=== PATIENT | male | born 1930 | race Caucasian/White ===

== ENCOUNTER 2017-03-12 12:44 | Inpatient (IN) ==
[2017-03-12] MEDS ORDERED: SODIUM CHLORIDE 0.9% 500 ML IV STA (14:09)
[2017-03-12] MEDS ORDERED: ALUM/MAG/SIMETH/LIDO VISC 1:1 30 ML BOTTLE PO STA (14:09)
[2017-03-12] MEDS ORDERED: PANTOPRAZOLE 40 MG VIAL IV STA (14:09)
[2017-03-12] MEDS ORDERED: ONDANSETRON 4 MG/2 ML VIAL IV STA (14:09)
[2017-03-12] MEDS ORDERED: HYDROmorphone 2 MG/1 ML VIAL IV STA (14:09)
--- NOTE | 2017-03-12 14:12 | Emergency Department Note ---
Gurinder Renae Brittany, am scribing for, and in the presence of, Solo Dobson MD 13:29. Bronson Renae Charles R, MD, personally performed the services described in this documentation, ascribed by Belksi Fairchild in my presence, and it is both accurate and complete 412 . Arrival - Arrival Chief Complaint: Abdominal / Flank Pain Stated Complaint: stomach ache ED Nursing Triage Note: states has a bad stomach ache onset last night. denies n /v/d Mode of Arrival: Ambulatory Limitations: No Limitations Source: Patient, RN Notes Reviewed - History of Present Illness HPI Narrative: Patient is a 86 y/o white male presenting to the ED with c/o abdominal pain which onset last night. He denies any associated N/V/D, urinary frequency, urinary urgency, or dysuria. Patient states, "it feels like srinivasan bust." He reports that he did eat some cantaloupe, but truly believes that this may be another bowel blockage due to his history of bowel blockages. states that patient was admitted and to have a surgical procedure performed for a bowel blockage and states that the morning of the procedure patient had a bowel movement and notably the blockage was relieved. He denies any use of EtOH or Cigarettes. PMHx of HTN, Cerebral Hemorrhage, Migraine, Thyroid Disorder, Dyslipidemia, Gout, Renal Problems, Kidney Stones, Bowel Obstruction, GERD, Anemia, Partial Left Nephrectomy, Tonsillectomy/Adenoidectomy, Appendectomy, Colonoscopy, Prostate Surgery. Onset (ago): hour(s) Consistency: constant Severity: moderate Severity scale (1-10): 6 Quality: aching Allergies/Adverse Reactions: Allergies Allergy/AdvReac Type Severity Reaction Status Date / Time Sulfa (Sulfonamide Allergy Severe Unknown/Unable Verified 04/09/16 06:19 Antibiotics) to obtain sulfamethoxazole Allergy Severe Unknown/Unable Verified 04/09/16 06:19 [From Bactrim] to obtain trimethoprim [From Bactrim] Allergy Severe Unknown/Unable Verified 04/09/16 06: 19 to obtain Home Medications: Home Medications Medication Instructions Recorded Confirmed Type Allopurinol 1 tablet PO DAILY 06/13/15 03/12/17 History Ferrous Gluconate [Fergon] 240 mg PO BID 06/13/15 03/12/17 History Finasteride [Proscar] 5 mg PO DAILY 06/13/15 03/12/17 History Levothyroxine Tab [Synthroid Tab] 1 tablet PO DAILY 06/13/15 03/12/17 History Nitroglycerin Sl Tab [Nitrostat] 0.4 mg SL Q5M PRN 06/13/15 03/12/17 History Pantoprazole Tab [Protonix Tab] 40 mg PO DAILY 06/13/15 03/12/17 History Potassium Chloride 20 meq PO DAILY 06/13/15 03/12/17 History Pravastatin [Pravachol] 40 mg PO BEDTIME 06/13/15 03/12/17 History Timolol 0.5% Oph Soln [Timoptic 1 drop BOTH EYES BID 06/13/15 03/12/17 History 0.5%] Cholecalciferol [Vitamin D3] 400 unit PO DAILY 03/30/16 03/12/17 History Gabapentin 100 mg PO TID 03/30/16 03/12/17 History Aspirin EC Tab 81 mg PO DAILY 03/12/17 03/12/17 History Doxazosin Mesylate 8 mg PO QPM 03/12/17 03/12/17 History Triamterene/Hydrochlorothiazid 1 each PO QAM 03/12/17 03/12/17 History [Triamterene-Hctz 37.5-25 mg Tb] dilTIAZem HCl [Cartia XT] 240 mg PO BID 03/12/17 03/12/17 History Review of System - Review of System 12 point system: reviewed and no additional remarkable complaints except as stated - Review of System Constitutional: Absent: chills, fever Eyes: Absent: vision change Head/Ears/Nose/Throat: Absent: nasal drainage, sore throat Respiratory: Absent: respiratory distress Cardiovascular: Absent: chest pain Gastrointestinal: Present: abdominal pain. Absent: nausea, vomiting, diarrhea Genitourinary male: Absent: urgency, dysuria, frequency Musculoskeletal: Absent: arm pain, back pain, leg pain, neck pain Skin: Absent: rash Neurological: Absent: headache Psychiatric: Absent: anxiety, depression Medical,Surgical,& Family Hx - Medical History Cardio: History of: Hypertension, Cardiovascular Problems (LOWER EXT CIRCULATION DECREASED.PT SEES DR HERNANDEZ) Neurology: History of: Cerebral Hemorrhage (2012 NO SURGERY), Migraine ( CHILDHOOD) No history of: Seizures HEENT: History of: Ear Problem (BILATERAL HEARING AIDS), Eye Problem (OU), Dental Problems (FULL SET), Glaucoma (OU) Endocrine: History of: Dyslipidemia, Thyroid Disorder (BX) Rheumatology: History of;: Gout (PAST HISTORY) Renal: History of: Renal Problems (PT SEES DR MAN.) Genitourinary: History of: Kidney Stones (PAST HISTORY), Problems (BEIGN TUMOR REMOVE LEFT KIDNEY. DR MACY ORTIZ) Gastrointestinal: History of: Bowel Obstruction, GERD Hematology: History of: Anemia - Surgical History Thoracic Surgeries: Surgical HX of;: Nephrectomy (PARTIAL LEFT) Neurologic Surgeries: Surgical HX of: Cerebral Hemorrhage (2012 NO SURGERY) HEENT Surgeries: Surgical HX of: Eye Surgery (BILATERAL CATARACT ), Tonsilectomy & Adenoidectomy Abdominal Surgeries: Surgical HX of: Appendectomy, Colonoscopy (DR GALARZA) Reproductive Surgeries: Surgical HX of;: Genitourinary Surgery (TUMOR REMOVE KIDNEY), Prostate Surgery - Family History Family History: Reports;: Family Cancer (BROTHER), Family Diabetes (DAD BOTHERS- 2), Family Heart Disease (MOM), Family Hypertension (PQREBTD) - Social History Smoking Status: Never smoker Frequency of Alcohol Use: None Type of Drug Use: None Exam Vital Signs: Vital Signs Temperature 98.5 F 03/12/17 12:57 Pulse Rate 86 03/12/17 12:57 Respiratory Rate 18 03/12/17 12:57 Blood Pressure 168/80 03/12/17 12:57 O2 Sat by Pulse Oximetry 97 03/12/17 12:57 - General General appearance: alert, in no apparent distress - Head Head exam: Present: atraumatic, normocephalic, normal inspection - Eye Eye exam: Present: normal appearance, PERRL, EOMI - ENT ENT exam: Present: normal exam, normal oropharynx - Neck Neck exam: Present: normal inspection, full ROM, trachea midline - Chest Chest inspection: Present: normal inspection, symmetric chest wall rise - Respiratory Respiratory exam: Present: normal lung sounds bilaterally - Cardiovascular Cardiovascular exam: Present: regular rate, normal rhythm, normal heart sounds - Abdominal Exam Abdominal exam: Present: soft, distention, hypoactive bowel sounds. Absent: tenderness, normal bowel sounds - Extremities Exam Extremities exam: Present: pedal edema (+3 noted to bilateral lower extremities) - Back Exam Back exam: Present: normal inspection - Neurological Exam Neurological exam: Present: alert, oriented X3, CN II-XII intact. Absent: motor sensory deficit - Psychiatric Psychiatric exam: Present: normal affect, normal mood - Skin Skin exam: Present: warm, dry Course - Consultations Consultation #1: Dr. Jiménez will admit patient Time: 15:51 Results - Labs CBC & BMP: 03/12/17 13:37 03/12/17 13:37 Lab Results: I have reviewed the patients labs Labs: Laboratory Tests 03/12/17 03/12/17 13:37 13:37 WBC 11.0 RBC 4.93 Hgb 15.0 Hct 44.9 MCV 91.1 MCH 30 MCHC 33.4 RDW 14.3 Plt Count 161 MPV 11.7 Neut % (Auto) 84.2 H Lymph % (Auto) 9.4 L Crowley % (Auto) 5.4 Eos % (Auto) 0.2 Baso % (Auto) 0.3 Neut # (Auto) 9.3 H Lymph # (Auto) 1.0 L Crowley # (Auto) 0.6 Eos # (Auto) 0.0 Baso # (Auto) 0.0 Immature Gran % 0.5 Nucleated RBC % 0.0 Immature Gran # 0.05 Nucleated RBCs # 0.00 Sodium 141 Potassium 3.8 Chloride 103 Carbon Dioxide 30 Anion Gap 11.8 BUN 17 Creatinine 1.50 H GFR Calculation 50 BUN/Creatinine Ratio 11.00 Glucose 111 H Calculated Osmolality 283.3 Calcium 9.9 Magnesium 2.3 Total Bilirubin 0.70 AST 31 ALT 42 Alkaline Phosphatase 58 Troponin I < 0.015 Total Protein 6.9 Albumin 4.0 Globulin 2.9 Albumin/Globulin Ratio 1.3 Amylase 59 Lipase 95.0 Laboratory Tests 03/12/17 13:37 Lactic Acid 2.1 H - Diagnostic Findings Procedure: Abdominal x-ray: report reviewed by me (No definite acute process seen.), Chest x-ray: report reviewed by me (Slight increase in heart size.), CT Abdomen and Pelvis: report reviewed by me (1. The middle loops of small intestine demonstrate disproportionate dilatation and air-fluid levels. Loops of bowel measure up to 3 cm in diameter. Fecalization is also present. These findings are consistent with a partial small bowel obstruction. To some extent , similar findings were seen on the previous exam, but the degree of distention is worsened compared to the study. Considerations include adhesions, internal hernia, or infiltrating neoplasm without significant mass effect. 2. Small amount of free fluid, adjacent to dilated loops of bowel. 3. Stable right adrenal mass. 4. Postsurgical changes of the left kidney. Small nodular densities, some of which at least represent cysts, seen on the kidneys, which will need to be progressively followed. 5. Cholelithiasis. 6. Fatty infiltration of the liver. 7. Enlarged prostate gland, containing either more likely calcifications, or radioactive beads. 8. Left inguinal and umbilical hernias which contain only fat. 9. Development of pleural effusion, and a small amount of increased pericardial fluid.) Disposition Clinical Impression: Abdominal pain, Small bowel obstruction Case discussed with: patient, patient's family Disposition: Still a Patient Condition: Stable Time of Disposition: 15:51
[2017-03-12 14:26] LABS: Basophils % 0.3 % (0.0-0.8); Eosinophils % 0.2 % (0.00-10.9); Hematocrit 44.9 VOL% (42.0-52.0); Immature Granulocytes % 0.5 %; Immature Granulocytes Absolute 0.05 #; Lymphocytes % 9.4 % (21.2-54.2); Mean Corpuscular HGB Conc 33.4 GM/DL (32-36); Mean Corpuscular Hemoglobin 30 PG (27-34); Mean Corpuscular Volume 91.1 FL (87-102); Mean Platelet Volume 11.7 FL (9.6-12.0); Monocytes # 0.6 10*3/uL (0.11-0.8); Monocytes % 5.4 % (1.7-12.7); Neutrophils # 9.3 10*3/uL (1.4-7.4); Neutrophils % 84.2 % (38.7-73.9); Platelet Count 161 T/CUMM (130-400); Red Blood Count 4.93 MC/CUMM (3.8-5.5); Red Cell Distribution Width 14.3 % (9.3-17.3)
[2017-03-12] MEDS ORDERED: ONDANSETRON 4 MG/2 ML VIAL ONE (14:35)
[2017-03-12] MEDS ORDERED: HYDROmorphone 2 MG/1 ML VIAL ONE (14:35)
[2017-03-12] MEDS ORDERED: ALUM/MAG/SIMETH/LIDO VISC 1:1 30 ML BOTTLE PO ONE (14:35)
[2017-03-12] MEDS ORDERED: PANTOPRAZOLE 40 MG VIAL IV ONE (14:35)
[2017-03-12 14:39] LABS: Alanine Aminotransferase 42 U/L (16-61); Alkaline Phosphatase 58 U/L (45-117); Amylase 59 U/L (25-115); Aspartate Amino Transferase 31 U/L (0-37); Blood Urea Nitrogen 17 MG/DL (7-18); Calcium 9.9 MG/DL (8.5-10.1); Glucose 111 MG/DL (74-106); Magnesium 2.3 MG/DL (1.8-2.4); Osmolality,Calculated 283.3 MOS/KG (273-304); Potassium 3.8 MMOL/L (3.5-5.1); Sodium 141 MMOL/L (136-145); Total Protein 6.9 G/DL (6.4-8.3); Troponin I Only < 0.015 NG/ML (0.00-0.045)
[2017-03-12 15:20] LABS: Lactic Acid 2.1 MMOL/L (0.4-2.0)
--- NOTE | 2017-03-12 15:29 | CT Report ---
CT of the abdomen and pelvis with intravenous contrast. No oral contrast was administered. Axial images were obtained with sagittal and coronal reconstructions. Indication: Generalized abdominal and pelvic pain. 100 cc Omni 350. Comparison is made to a previous noncontrasted study of February 04, 2016. The heart is upper limits of normal in size. There are small, left greater than right pleural effusions. There is atelectasis present within each lung base. There is a calcified granuloma in the medial aspects of the right lower lobe. There is coronary artery calcification. There is a slight increase in pericardial fluid inferiorly. The liver is normal in size. There is slight fatty infiltration of the liver. Tiny cysts are noted within the left lobe of the liver. No biliary ductal dilatation. Layering within the gallbladder, tiny gallstones are seen. There is an adrenal mass on the right. The features are most suggestive, but not completely diagnostic, of an adenoma. It measures 18 mm. It remains stable compared to the previous exam from February 04, 2016. There is no splenic enlargement. Within the right kidney, there is a small lobulation medially at the mid pole, stable. There is a 12 mm cyst at the medial mid pole. There is a tiny hypodensity most likely representing a cyst, at the lower pole posteriorly. Along the anterior border of the right lobe, there is a fat and calcific density which probably relates to previous surgery. There is a 15 mm hypodensity, stable, most likely representing a cyst. No hydronephrosis. Phleboliths are noted along the left groin. The urinary bladder presents a normal appearance. The prostate gland is enlarged with a diameter of 6.9 cm. It contains either calcifications, or small implants. There is heavy calcific plaque of the abdominal aorta. This extends into the origins of the SMA and both renal arteries, as well as both common iliac arteries. There is some bland intramural plaque as well. There is no retroperitoneal lymphadenopathy. The gastric contour is normal. The duodenum, and proximal small intestine is of normal caliber. There is a relatively abrupt transition without a definite mass in the mid small intestine into dilated small intestine having air-fluid levels without wall thickening. In the distal ileum, several feet before the terminal ileum, there is fecalization of the small intestine in a relatively abrupt transition zone to normal caliber small intestine. There is a small amount of fluid around these loops of small intestine in the right lower quadrant, adhesions may be present. The terminal ileum presents a normal appearance. The appendix is not discretely visualized. The colon demonstrates relative collapse compared to the small intestine, with fecal material and numerous diverticuli, but no evidence of diverticulitis. Fluid extends into and a left inguinal hernia which contains only fat. There is also an umbilical hernia which contains only fat. Small sclerotic lesions within the bony structures remain stable. The osseous structures are diffusely demineralized. Degenerative changes are present within the spinal column and hips. There is chronic anterior wedging of T10, T11, and L1. Impression: 1. The middle loops of small intestine demonstrate disproportionate dilatation and air-fluid levels. Loops of bowel measure up to 3 cm in diameter. Fecalization is also present. These findings are consistent with a partial small bowel obstruction. To some extent, similar findings were seen on the previous exam, but the degree of distention is worsened compared to the study. Considerations include adhesions, internal hernia, or infiltrating neoplasm without significant mass effect. 2. Small amount of free fluid, adjacent to dilated loops of bowel. 3. Stable right adrenal mass. 4. Postsurgical changes of the left kidney. Small nodular densities, some of which at least represent cysts, seen on the kidneys, which will need to be progressively followed. 5. Cholelithiasis. 6. Fatty infiltration of the liver. 7. Enlarged prostate gland, containing either more likely calcifications, or radioactive beads. 8. Left inguinal and umbilical hernias which contain only fat. 9. Development of pleural effusion, and a small amount of increased pericardial fluid. The CT exam was performed using one or more of the following dose reduction techniques: Automated exposure control, adjustment of the mA and/or kV according to patient size, or use of iterative reconstruction technique. PROCEDURE INTERPRETED AT [facility] DEPARTMENT OF RADIOLOGY Final Report Signed by: Dr. Marjorie Abebe
--- NOTE | 2017-03-12 15:30 | XRay Report ---
Portable chest. Indication: Abdominal pain. Comparison: March 30, 2016. The heart is borderline enlarged, increased from the previous. A calcified granuloma is seen in the right lung base. The pulmonary vasculature is normal. No consolidation, pneumothorax, or pleural effusion. Degenerative changes of the spinal column and shoulders. Impression: Slight increase in heart size. PROCEDURE INTERPRETED AT [facility] DEPARTMENT OF RADIOLOGY Final Report Signed by: Dr. Marjorie Abebe
--- NOTE | 2017-03-12 15:31 | XRay Report ---
Abdomen flat and decubitus. Indication: Generalized abdominal pain. Comparison: February 04, 2016. Contrast material is seen within the renal collecting systems and urinary bladder, without evidence of dilatation. The heart is borderline enlarged. No intra-abdominal organomegaly is seen. Very little bowel gas is noted. No free air identified. Impression: No definite acute process seen. PROCEDURE INTERPRETED AT [facility] DEPARTMENT OF RADIOLOGY Final Report Signed by: Dr. Marjorie Abebe
[2017-03-12] MEDS ORDERED: ACETAMINOPHEN 325 MG TABLET PO PRN (17:08)
[2017-03-12] MEDS ORDERED: ALBUTEROL/IPRATROPIUM 3 ML NEB RESP TX PRN (17:08)
[2017-03-12] MEDS ORDERED: ONDANSETRON 4 MG/2 ML VIAL IV PRN (17:08)
[2017-03-12] MEDS ORDERED: HYDROmorphone 2 MG/1 ML VIAL IV PRN (17:08)
[2017-03-12] MEDS ORDERED: NITROGLYCERIN SL 0.4 MG TABLET SL PRN (17:08)
[2017-03-12] MEDS: SODIUM CHLORIDE 0.9% 1,000 ML IV SCH ×2 (18:09→19:45)
[2017-03-12] MEDS: PRAVASTATIN 40 MG TABLET PO SCH (20:33)
[2017-03-12] MEDS: TIMOLOL 0.5% OPH SOLN 5 ML BOTTLE BOTH EYES SCH (20:33)
[2017-03-12] MEDS: GABAPENTIN 100 MG CAPSULE PO SCH (20:33)
[2017-03-12] MEDS: DOXAZOSIN 4 MG TABLET PO SCH (20:33)
[2017-03-12] MEDS: DILTIAZEM CD 240 MG CAPSULE PO SCH (20:34)
[2017-03-13] MEDS: LEVOTHYROXINE 75 MCG TABLET PO SCH (06:16)
[2017-03-13 07:30] LABS: Basophils % 0.3 % (0.0-0.8); Eosinophils # 0.1 10*3/uL (0.0-0.87); Eosinophils % 1.1 % (0.00-10.9); Hematocrit 39.3 VOL% (42.0-52.0); Hemoglobin 13.1 GM/DL (14.0-18.0); Immature Granulocytes % 0.5 %; Immature Granulocytes Absolute 0.04 #; Lymphocytes # 1.5 10*3/uL (1.4-4.0); Lymphocytes % 16.6 % (21.2-54.2); Mean Corpuscular HGB Conc 33.3 GM/DL (32-36); Mean Corpuscular Hemoglobin 31 PG (27-34); Mean Corpuscular Volume 91.6 FL (87-102); Mean Platelet Volume 11.2 FL (9.6-12.0); Monocytes % 11.5 % (1.7-12.7); Neutrophils # 6.1 10*3/uL (1.4-7.4); Platelet Count 148 T/CUMM (130-400); Red Blood Count 4.29 MC/CUMM (3.8-5.5); Red Cell Distribution Width 14.4 % (9.3-17.3); White Blood Count 8.7 T/CUMM (4-12)
[2017-03-13 07:58] LABS: Albumin 3.1 G/DL (3.4-5.0); Bilirubin,Total 0.8 MG/DL (0.2-1.0); Calcium 8.5 MG/DL (8.5-10.1); Magnesium 2.2 MG/DL (1.8-2.4); Osmolality,Calculated 288.6 MOS/KG (273-304); Total Protein 5.4 G/DL (6.4-8.3)
--- NOTE | 2017-03-13 07:58 | XRay Report ---
XR abdomen 2V Indication: Abdominal pain. Comparison: Abdominal series 03/12/2017; 1508 hours Technique: Flat and erect images of the abdomen were performed. Findings: Lung bases are clear. No organomegaly suggested. The bowel gas pattern demonstrates no significant abnormality. Bony structures as well as soft tissues demonstrate no evidence of significant pathology. Punctate density lower left renal contour suggesting nephrolith is present. Density within the urinary bladder likely reflects residual contrast. Impression: 1. No active process is suggested within the abdomen or pelvis. 2. Left-sided nephrolith is suggested. 3. Residual contrast is suggested within the urinary bladder. 03/13/2017 7:52 AM PROCEDURE INTERPRETED AT [facility] DEPARTMENT OF RADIOLOGY Final Report Signed by: Dr. Greg Bruce
--- NOTE | 2017-03-13 08:59 | General Surg History&Physical ---
Assessment and Plan - Time spent with patient Time spent with patient: Greater than 30 minutes (1) Small bowel obstruction Status: Acute Assessment and plan: Impression: Small bowel obstruction partial Plan: Keep the bowels at rest just observation for now Surgery if he fails to improve Current Visit: Yes History of Present Illness Chief complaint: Abdominal distention with some nausea History of present illness: Mr. Mcgee is a 86 year old male white who has had several episodes of partial bowel obstruction in the past. Had been doing well when he had some abdominal distention again with some crampy uncomfortable pain and a little bit of nausea. Came to the emergency room with a did a CT scan that suggested partial bowel obstruction at this time. Patient has had previous surgeries basically laparoscopic in nature to remove a mass from the left kidney in and he has had an old appendectomy scar. Apparently did not have any problem with bowel obstruction until following the nephrectomy at which time he has had about 3 episodes that generally will resolve themselves over time. We admitted him for observation and see if he will open up again at this time. Home Medications Medication Instructions Recorded Confirmed Type Allopurinol 1 tablet PO DAILY 06/13/15 03/12/17 History Ferrous Gluconate [Fergon] 240 mg PO BID 06/13/15 03/12/17 History Finasteride [Proscar] 5 mg PO DAILY 06/13/15 03/12/17 History Levothyroxine Tab [Synthroid Tab] 1 tablet PO DAILY 06/13/15 03/12/17 History Nitroglycerin Sl Tab [Nitrostat] 0.4 mg SL Q5M PRN 06/13/15 03/12/17 History Pantoprazole Tab [Protonix Tab] 40 mg PO DAILY 06/13/15 03/12/17 History Potassium Chloride 20 meq PO DAILY 06/13/15 03/12/17 History Pravastatin [Pravachol] 40 mg PO BEDTIME 06/13/15 03/12/17 History Timolol 0.5% Oph Soln [Timoptic 1 drop BOTH EYES BID 06/13/15 03/12/17 History 0.5%] Cholecalciferol [Vitamin D3] 400 unit PO DAILY 03/30/16 03/12/17 History Gabapentin 100 mg PO TID 03/30/16 03/12/17 History Aspirin EC Tab 81 mg PO DAILY 03/12/17 03/12/17 History Doxazosin Mesylate 8 mg PO QPM 03/12/17 03/12/17 History Triamterene/Hydrochlorothiazid 1 each PO QAM 03/12/17 03/12/17 History [Triamterene-Hctz 37.5-25 mg Tb] dilTIAZem HCl [Cartia XT] 240 mg PO BID 03/12/17 03/12/17 History Allergies Allergy/AdvReac Type Severity Reaction Status Date / Time Sulfa (Sulfonamide Allergy Severe Unknown/Unable Verified 04/09/16 06:19 Antibiotics) to obtain sulfamethoxazole Allergy Severe Unknown/Unable Verified 04/09/16 06:19 [From Bactrim] to obtain trimethoprim [From Bactrim] Allergy Severe Unknown/Unable Verified 04/09/16 06: 19 to obtain Medical,Surgical,& Family Hx - Medical History Cardio: History of: Hypertension, Cardiovascular Problems (LOWER EXT CIRCULATION DECREASED.PT SEES DR HERNANDEZ) Neurology: History of: Cerebral Hemorrhage (2013 NO SURGERY), Migraine ( CHILDHOOD) No history of: Seizures HEENT: History of: Ear Problem (BILATERAL HEARING AIDS), Eye Problem (OU), Dental Problems (FULL SET), Glaucoma (OU) Endocrine: History of: Dyslipidemia, Thyroid Disorder (BX) Rheumatology: History of;: Gout (PAST HISTORY) Renal: History of: Renal Problems (PT SEES DR MAN.) Genitourinary: History of: Kidney Stones (PAST HISTORY), Problems (BEIGN TUMOR REMOVE LEFT KIDNEY. DR MACY ORTIZ) Gastrointestinal: History of: Bowel Obstruction (2017 (HX OF 3 SBO)), GERD Hematology: History of: Anemia - Surgical History Thoracic Surgeries: Surgical HX of;: Nephrectomy (PARTIAL LEFT) Neurologic Surgeries: Surgical HX of: Cerebral Hemorrhage (2012 NO SURGERY) HEENT Surgeries: Surgical HX of: Eye Surgery (BILATERAL CATARACT ), Tonsilectomy & Adenoidectomy Abdominal Surgeries: Surgical HX of: Abdominal Surgery, Appendectomy, Colonoscopy (DR GALARZA) Reproductive Surgeries: Surgical HX of;: Genitourinary Surgery (TUMOR REMOVE KIDNEY), Prostate Surgery - Family History Family History: Reports;: Family Cancer (BROTHER), Family Diabetes (DAD BOTHERS- 2), Family Heart Disease (MOM), Family Hypertension (PQREBTD) - Social History Smoking Status: Never smoker Frequency of Alcohol Use: None Type of Drug Use: None Exam - Constitutional Vitals: Period Temp Pulse Resp BP Sys/Hanna Pulse Ox Last 24 Hr 97.9 F-98.7 F 50-99 16-20 131-179/61-80 90-99 General appearance: mild distress - Head Head exam: Present: normal inspection - ENT ENT exam: Present: normal exam - Neck Neck exam: Present: normal inspection - Respiratory Respiratory exam: Present: clear to auscultation bilaterally, rales - Cardiovascular Cardiovascular exam: Present: RRR - GI/Abdominal GI/Abdominal exam: Present: distended, hypoactive bowel sounds, soft. Absent: tenderness - Extremities Exam Extremities exam: Present: normal inspection - Back Exam Back exam: Present: normal inspection - Neurological Exam Neurological exam: Present: alert, oriented X3, CN II-XII intact - Skin Skin exam: Present: normal color, warm, dry 12 point system: reviewed and no additional remarkable complaints except as stated Results - Labs CBC & BMP: 03/13/17 07:18 03/13/17 07:18 Lab Results: I have reviewed the past 24 hour labs - Diagnostic Findings Procedure: Abdominal Flat/Erect: report reviewed by me (Unremarkable)
[2017-03-13] MEDS ORDERED: PANTOPRAZOLE 40 MG VIAL IV SCH (09:00)
[2017-03-13] MEDS ORDERED: TRIAMTERENE/HCTZ 37.5-25 MG TABLET PO SCH (09:00)
[2017-03-13] MEDS: DILTIAZEM CD 240 MG CAPSULE PO SCH ×2 (09:02→20:42)
[2017-03-13] MEDS: POTASSIUM CHLORIDE 20 MEQ TABLET PO SCH (09:02)
[2017-03-13] MEDS: GABAPENTIN 100 MG CAPSULE PO SCH ×3 (09:02→20:42)
[2017-03-13] MEDS: ASPIRIN EC 81 MG TABLET PO SCH (09:02)
[2017-03-13] MEDS: PANTOPRAZOLE 40 MG TABLET PO SCH (09:03)
[2017-03-13] MEDS: CHOLECALCIFEROL 400 UNIT TABLET PO SCH (09:03)
[2017-03-13] MEDS: ALLOPURINOL 300 MG TABLET PO SCH (09:03)
[2017-03-13] MEDS: FINASTERIDE 5 MG TABLET PO SCH (09:03)
[2017-03-13] MEDS: FERROUS GLUCONATE 240 MG TABLET PO SCH ×2 (09:03→20:42)
[2017-03-13] MEDS: TIMOLOL 0.5% OPH SOLN 5 ML BOTTLE BOTH EYES SCH ×2 (09:22→20:43)
--- NOTE | 2017-03-13 09:24 | Physician Query Form ---
CLICK EDIT DOCUMENT TO SELECT QUERY ANSWER --> OK --> SIGN Kathy Brewster RN Clinical Database Programmer Analyst W) [phone] (f) [phone] [email or web address] Make your selection(s) from the choices in EACH section by typing an "x" and enter comments in the comment section. Please use your independent medical judgment in providing your response. This request does not imply that any particular answer is desired or expected. CLINICAL INDICATORS: (Providers should not edit this section) Based on lab results of creatinine on admission of 1.50 with a GFR of 50 and decreased to 1.10. Pt. treated with IV fluids of Normal Saline. Pt. has a history of partial left nephrectomy. Clarify which of the following most accurately represents the patient's renal status: (x ) Acute kidney injury (non-traumatic) ( ) Acute renal failure ( ) Acute renal failure with underlying Chronic Kidney Disease (CKD) - please provide stage below ( ) CKD - please provide stage below ( ) Other, please specify: ( ) Clinically unable to determine Chronic Kidney Disease Stages Source: National Kidney Disease Foundation ( ) Stage I (eGFR > or = 90) ( ) Stage II (eGFR 60 - 89) ( ) Stage III (eGFR 30 - 59) ( ) Stage IV (eGFR 15 - 29) ( ) Stage V (eGFR < 15 or dialysis) COMMENTS: PLEASE ALSO DOCUMENT RESPONSE IN PROGRESS NOTES AND/OR DISCHARGE SUMMARY Use of terms such as suspected, likely, or probable (associated with a specific diagnosis that is being evaluated, monitored, or treated as if it exists) are acceptable and can be restated in the discharge summary if not ruled out. MTDD
[2017-03-13] MEDS: ENOXAPARIN 40 MG/0.4 ML SYRINGE SUBCUT SCH (10:14)
[2017-03-13] MEDS: SODIUM CHLORIDE 0.9% 1,000 ML IV SCH ×2 (20:40→20:43)
[2017-03-13] MEDS: DOXAZOSIN 4 MG TABLET PO SCH (20:42)
[2017-03-13] MEDS: PRAVASTATIN 40 MG TABLET PO SCH (20:42)
[2017-03-14] MEDS: LEVOTHYROXINE 75 MCG TABLET PO SCH (06:14)
--- NOTE | 2017-03-14 08:32 | XRay Report ---
XR abdomen 2V Indication: Small bowel obstruction. Comparison: Abdominal series 03/13/2017. Technique: Flat and erect images of the abdomen were performed. Findings: Lung bases are clear. No organomegaly suggested. The bowel gas pattern demonstrates no significant abnormality. Bony structures as well as soft tissues demonstrate no evidence of significant pathology. Multiple surgical clips within the left abdomen and upper left pelvis are stable. Midline calcifications within the pelvis likely lie within the prostate. Impression: 1. Bowel gas pattern demonstrates no specific evidence of small bowel obstruction. 2. Calcification of the prostate is suggested. 03/14/2017 8:28 AM PROCEDURE INTERPRETED AT [facility] DEPARTMENT OF RADIOLOGY Final Report Signed by: Dr. Greg Bruce
[2017-03-14] MEDS: CHOLECALCIFEROL 400 UNIT TABLET PO SCH (08:34)
[2017-03-14] MEDS: ALLOPURINOL 300 MG TABLET PO SCH (08:34)
[2017-03-14] MEDS: ASPIRIN EC 81 MG TABLET PO SCH (08:34)
[2017-03-14] MEDS: DILTIAZEM CD 240 MG CAPSULE PO SCH ×2 (08:34→21:05)
[2017-03-14] MEDS: FINASTERIDE 5 MG TABLET PO SCH (08:34)
[2017-03-14] MEDS: PANTOPRAZOLE 40 MG TABLET PO SCH (08:35)
[2017-03-14] MEDS: GABAPENTIN 100 MG CAPSULE PO SCH ×3 (08:35→21:06)
[2017-03-14] MEDS: TIMOLOL 0.5% OPH SOLN 5 ML BOTTLE BOTH EYES SCH ×2 (08:35→21:07)
[2017-03-14] MEDS: POTASSIUM CHLORIDE 20 MEQ TABLET PO SCH (08:35)
[2017-03-14] MEDS: SODIUM CHLORIDE 0.9% 1,000 ML IV SCH ×2 (08:36→21:08)
--- NOTE | 2017-03-14 09:49 | General Surgery Progress Note ---
Assessment and Plan - Time spent with patient Time spent with patient: Less than 30 minutes (1) Small bowel obstruction Status: Acute Assessment and plan: 03/14/2017. Apparent small bowel obstruction has resolved by x-ray criteria. He is certainly more comfortable and clinically does not appear obstructed. Although he is not nauseated and is passing gas per rectum, he is still not had a bowel movement. I favor advancing his diet to full liquids, and observing him a bit longer. He is requesting a suppository for bowel movement ask he feels he does need to evacuate stool and I will discuss this with Dr. Jiménez; at this point we do not want to give him laxatives but certainly will feel more comfortable if he does have stool passage before we discharge him. Current Visit: Yes Subjective Patient reports: Present: feels better, pain is less, tolerating liquids well, flatus, no bowel movement Exam - Constitutional Vitals: Period Temp Pulse Resp BP Sys/Hanna Pulse Ox Last 24 Hr 97.3 F-98.5 F 50-64 16-19 128-144/53-70 92-97 General appearance: no acute distress, over weight, other (Patient without complaints. He is up to the bathroom and passing flatus, but as of this morning 's dictation he has not had a bowel movement. ) - Respiratory Respiratory exam: Present: clear to auscultation bilaterally - Cardiovascular Cardiovascular exam: Present: RRR - GI/Abdominal GI/Abdominal exam: Present: normal bowel sounds, tenderness (Left groin with mild tenderness to deep palpation; this is in particular region of the nephrectomy scar. I do not detect any definite hernia in this region, although there is some palpable fatty tissue along the edge of the superior iliac crest.) , soft. Absent: distended Results - Labs CBC & BMP: 03/13/17 07:18 03/13/17 07:18 Lab Results: I have reviewed the past 24 hour labs - Diagnostic Findings Procedure: Abdominal Flat/Erect: image reviewed by me, report reviewed by me (X- ray films or reports have been reviewed by me. The gas pattern is normal, and there is no evidence to suggest small bowel obstruction.)
[2017-03-14] MEDS ORDERED: BISACODYL 10 MG SUPP RECTAL ONE ×2 (10:11→14:04)
[2017-03-14] MEDS: ENOXAPARIN 40 MG/0.4 ML SYRINGE SUBCUT SCH (10:20)
[2017-03-14] MEDS: FERROUS GLUCONATE 240 MG TABLET PO SCH ×2 (10:20→21:05)
[2017-03-14] MEDS: DOXAZOSIN 4 MG TABLET PO SCH (21:05)
[2017-03-14] MEDS: PRAVASTATIN 40 MG TABLET PO SCH (21:22)
[2017-03-15] MEDS: SODIUM CHLORIDE 0.9% 1,000 ML IV SCH ×2 (04:26→14:28)
[2017-03-15] MEDS: LEVOTHYROXINE 75 MCG TABLET PO SCH (06:03)
[2017-03-15] MEDS: DILTIAZEM CD 240 MG CAPSULE PO SCH (08:57)
[2017-03-15] MEDS: PANTOPRAZOLE 40 MG TABLET PO SCH (08:57)
[2017-03-15] MEDS: ASPIRIN EC 81 MG TABLET PO SCH (08:57)
[2017-03-15] MEDS: GABAPENTIN 100 MG CAPSULE PO SCH ×2 (08:57→14:28)
[2017-03-15] MEDS: POTASSIUM CHLORIDE 20 MEQ TABLET PO SCH (08:57)
[2017-03-15] MEDS: ALLOPURINOL 300 MG TABLET PO SCH (08:57)
[2017-03-15] MEDS: FERROUS GLUCONATE 240 MG TABLET PO SCH (08:58)
[2017-03-15] MEDS: CHOLECALCIFEROL 400 UNIT TABLET PO SCH (08:58)
[2017-03-15] MEDS: FINASTERIDE 5 MG TABLET PO SCH (08:58)
[2017-03-15] MEDS: TIMOLOL 0.5% OPH SOLN 5 ML BOTTLE BOTH EYES SCH (09:00)
[2017-03-15] MEDS ORDERED: LACTULOSE 20 GM/30 ML UDCUP PO ONE (09:26)
[2017-03-15] MEDS: ENOXAPARIN 40 MG/0.4 ML SYRINGE SUBCUT SCH (09:45)
--- NOTE | 2017-03-15 12:29 | General Surgery Progress Note ---
Assessment and Plan (1) Small bowel obstruction Status: Acute Assessment and plan: 03/14/2017. Apparent small bowel obstruction has resolved by x-ray criteria. He is certainly more comfortable and clinically does not appear obstructed. Although he is not nauseated and is passing gas per rectum, he is still not had a bowel movement. I favor advancing his diet to full liquids, and observing him a bit longer. He is requesting a suppository for bowel movement ask he feels he does need to evacuate stool and I will discuss this with Dr. Jiménez; at this point we do not want to give him laxatives but certainly will feel more comfortable if he does have stool passage before we discharge him. 03/15/17 Stable. No evidence of bowel obstruction, although he is constipated by clinical information. I do favor him having a bowel movement before discharge , and we discussed several options, including continued suppositories, fleets enema. He prefers to try 'what works for me at home,' which is 2Tbsp lactulose. We will administer this since he has no clinical or imaging evidence of obstruction. If he has a successful bowel movement, we could discharge him later today, or possibly wait until tomorrow. Current Visit: Yes Subjective Patient reports: Present: feels better, other (He had 'small rabbit pellets and an explosive gas bubble in the toilet' post suppository but thinks he needs more. He's requesting his 'Carbon laxative pills or either Lactulose because if I can finish this bowel movement I feel like I can go home.") Exam - Constitutional Vitals: Period Temp Pulse Resp BP Sys/Hanna Pulse Ox Last 24 Hr 97.4 F-98.2 F 55-70 16-20 128-155/56-73 94-99 General appearance: no acute distress, over weight, other (He's alert and comfortable; denies pain and says he's feeling so good he would like to finish this stool before he goes home.) - Respiratory Respiratory exam: Present: clear to auscultation bilaterally - Cardiovascular Cardiovascular exam: Present: RRR - GI/Abdominal GI/Abdominal exam: Present: normal bowel sounds, soft. Absent: distended, firm , guarding, tenderness Results - Labs CBC & BMP: 03/13/17 07:18 03/13/17 07:18
--- NOTE | 2017-03-15 14:39 | Discharge Summary ---
Hospital Course - Hospital Course Hospital Course: Discharge summary 03/15/2017 1. Small bowel obstruction 2. Post op adhesions 3. Cholelithiasis 4. Left inguinal hernia without obstruction 5. Umbilical hernia without obstruction Brief summary-this 86-year-old male patient was seen in the emergency room after onset of abdominal pain. He did experience some associated epigastric fullness with nausea and had history of previous partial small bowel obstructions with similar presentations. He presented to the emergency room complaining of nausea and fullness in the epigastrium. Plain x-rays showed decompressed loops of bowel. CT suggested small bowel obstruction, with possible transition point. 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 There was some fatty tissue in this region with non incarcerated left inguinal and umbilical hernias noted on CT, in addition to post surgical changes, left renal cysts, an enlarged prostate, and possible right adrenal mass. His labs were essentially normal. He was not having any gross vomiting, so it was elected to just admit him on bowel rest with gentle IV fluid hydration and Dr. Jiménez was consulted. Early in the morning following admission the patient did experience some flatus per rectum, and he did feel some decompression of the epigastric fullness, with the urge to have a bowel movement. Unfortunately he was not able to evacuate any stool or gas per rectum at that time. We continued IV fluids, but did add clear liquids at that time since he was not nauseated. He did increase his mobility, continued to progress without nausea, and the following day x-rays did show improvement of the bowel gas pattern without true obstructive pattern. We advanced his diet to full liquids, and he did begin passing gas per rectum. He was still not having any stool however, and the patient requested a Dulcolax suppository, which was administered with only a single small hard stool pellet. His bowel sounds were completely normal at this point. He requested a second suppository, which was also administered, and he did have evacuation of a few more hard stool pellets with minimal relief of his lower abdominal fullness. He requested lactulose but Dr. Jiménez did not feel it prudent to administer a laxative before we were certain and had given him an adequate opportunity to have a normal stool. At that point, on his abdominal exam it was felt that he did have a questionable reducible left inguinal vs. incisional hernia. Bowel sounds were normal. This has not been consistently re -demonstratable finding, however the patient does give history of intermittent firmness and tenderness in the area. Today, he was able to tolerate full liquids for breakfast and was advanced to a soft diet. He continued having stable vital signs, no voiding difficulties, no abdominal pain, and completely normal bowel sounds but still no spontaneous bowel movement. He passed a great deal of flatus per rectum, and again requested lactulose.. X-ray showed no evidence of bowel obstruction. He was concerned, however, that he was "quite constipated," and although he was eager to go home however I was a bit reluctant to discharge him without evidence of a true bowel movement so without evidence of a bowel obstruction, he was given 2 tablespoons of lactulose syrup, which elicited a series of quite large formed bowel movements and gas, which gave him a great deal of relief. At the time of this dictation, he is feeling much better, his sister is present in the room and is ready to take him home, and he is ready for discharge. We have discussed his dietary habits, his activities, and his usual regimen for bowel management, which he is to resume upon discharge, as well as all his other review his home medications. I have instructed him what to watch for in the event the left lower quadrant incision does present as an incisional hernia, and will plan to follow him up in our office in approximately 1 month unless he has problems sooner. Diagnosis - Discharge Diagnosis (1) Small bowel obstruction Status: Acute (2) Abdominal pain Status: Acute (3) Left inguinal hernia Status: Acute (4) Umbilical hernia Status: Acute (5) Cholelithiasis Status: Acute (6) Renal cyst Status: Acute Specialty Discharge - Follow Up or Referrals Follow up with: Peter Jiménez MD [Physician] - (Call our office on Saturday to schedule a 1 month follow-up) Discharge Plan - Discharge Data Disposition: Disch To Home/Self Care Condition at Discharge: Stable Discharge Diet: advance to your usual diet Activity: resume usual activities as tolerated Hygiene: no restrictions Weight Bearing at Discharge: full weight bearing Driving: no restrictions Contact your physician if you experience:: fever over 101, Nausea/Vomiting - Discharge Medications Continue Pantoprazole Tab [Protonix Tab] 40 mg PO DAILY Finasteride [Proscar] 5 mg PO DAILY Allopurinol 1 tablet PO DAILY Nitroglycerin Sl Tab [Nitrostat] 0.4 mg SL Q5M PRN PRN Reason: Chest Pain Pravastatin [Pravachol] 40 mg PO BEDTIME Levothyroxine Tab [Synthroid Tab] 1 tablet PO DAILY Ferrous Gluconate [Fergon] 240 mg PO BID Potassium Chloride 20 meq PO DAILY Timolol 0.5% Oph Soln [Timoptic 0.5%] 1 drop BOTH EYES BID Gabapentin 100 mg PO TID Cholecalciferol [Vitamin D3] 400 unit PO DAILY dilTIAZem HCl [Cartia XT] 240 mg PO BID Triamterene/Hydrochlorothiazid [Triamterene-Hctz 37.5-25 mg Tb] 1 each PO QAM Aspirin EC Tab 81 mg PO DAILY Doxazosin Mesylate 8 mg PO QPM - Follow Up or Referral - Forms/Instructions Exam - Constitutional Vitals: Period Temp Pulse Resp BP Sys/Hanna Pulse Ox Last 24 Hr 97.4 F-98.2 F 55-70 16-20 128-155/56-73 94-99 General appearance: no acute distress, over weight - Head Head exam: Present: normal inspection - Eye Eye exam: Present: EOMI - Respiratory Respiratory exam: Present: clear to auscultation bilaterally - Cardiovascular Cardiovascular exam: Present: regular rate and rhythm - GI/Abdominal GI/Abdominal exam: Present: normal bowel sounds, hernia (Left inguinal region with fatty tissue present; this is reducible and lies in close proximity to the left lower quadrant hand-assisted nephrectomy scar. It is difficult to reproduce a hernia with consistency however there may be an inguinal versus small incisional hernia present in this area. An umbilical hernia is noted on CT however I am unable to demonstrate this on my exam.). Absent: distended, guarding, rebound - Extremities Exam Extremities exam: Present: normal inspection DS: Provider Date of admission: 03/12/17 15:53 Primary care physician: . No PCP Attending physician on admission: Peter Jiménez MD Consults: 03/12/17 17:05 Consult to Pastoral Services [CONS] Routine Comment: Pastoral Screen: Request Classroom Instructional Aide Visit Pastoral Screen Source of Request: Patient Discharging clinician: Mirta Baker CNP, R
[2017-03-15 15:47] VITALS: BP 145/67
== END 2017-03-15 15:40 | disposition home or self-care (01) | DRG 389 ==
LOC: N.ED 12:44 → N.EDINP 15:53 → N.3E 16:40
PROVIDERS: ADMIT Specialist; ATTEND Specialist

== ENCOUNTER 2017-09-21 18:04 | Inpatient (IN) ==
[2017-09-21 19:48] LABS: Basophils # 0.1 10*3/uL (0.0-0.2); Basophils % 0.5 % (0.0-0.8); Eosinophils # 0.3 10*3/uL (0.0-0.87); Eosinophils % 2.5 % (0.00-10.9); Hematocrit 38.4 VOL% (42.0-52.0); Hemoglobin 12.2 GM/DL (14.0-18.0); Immature Granulocytes % 0.8 %; Lymphocytes # 1.1 10*3/uL (1.4-4.0); Lymphocytes % 9.6 % (21.2-54.2); Mean Corpuscular HGB Conc 31.8 GM/DL (32-36); Mean Corpuscular Hemoglobin 30 PG (27-34); Mean Corpuscular Volume 93.4 FL (87-102); Mean Platelet Volume 10.7 FL (9.6-12.0); Monocytes % 8.4 % (1.7-12.7); Neutrophils # 9.2 10*3/uL (1.4-7.4); Neutrophils % 78.2 % (38.7-73.9); Platelet Count 191 T/CUMM (130-400); Red Blood Count 4.11 MC/CUMM (3.8-5.5); Red Cell Distribution Width 13.7 % (9.3-17.3); White Blood Count 11.8 T/CUMM (4-12)
[2017-09-21 20:04] LABS: Albumin 3.2 G/DL (3.4-5.0); Bilirubin,Total 0.4 MG/DL (0.2-1.0); Calcium 9.1 MG/DL (8.5-10.1); Osmolality,Calculated 281.3 MOS/KG (273-304); Potassium 3.8 MMOL/L (3.5-5.1); Total Protein 6.1 G/DL (6.4-8.3)
[2017-09-21 20:36] LABS: Apearance,Urine Slightly Hazy (Clear); Bilirubin,Urine Negative (Negative); Blood, Urine Negative (Negative); Glucose,Urine (UA) Negative (Negative); Ketones,Urine Negative (Negative); Nitrite,Urine Negative (Negative); Protein,Urine 30 MG/DL; Urine Color Yellow (Yellow); Urine Specific Gravity 1.025 (1.001-1.035); Urine Urobilinogen < 2.0 EU/DL (0.2-1.0)
[2017-09-21 20:37] LABS: Bacteria,Urine Few /HPF (Few); Squamous Epithelial Cell,Urine Rare /HPF (0-10); WBC,Urine 6 /HPF (0-6)
[2017-09-21] MEDS ORDERED: PHENAZOPYRIDINE 95 MG TABLET PO STA (22:06)
[2017-09-21] MEDS ORDERED: SODIUM CHLORIDE 0.9% 500 ML IV STA (22:06)
[2017-09-21] MEDS ORDERED: AMOXICILLIN/CLAV 875 MG TABLET PO ONE (22:08)
[2017-09-21] MEDS ORDERED: PHENAZOPYRIDINE 95 MG TABLET ONE (22:23)
[2017-09-21] MEDS ORDERED: AMOXICILLIN/CLAV 875 MG TABLET ONE (22:23)
[2017-09-22] MEDS ORDERED: hydrALAZINE 20 MG/1 ML VIAL IV PRN (00:20)
[2017-09-22] MEDS: FUROSEMIDE 40 MG/4 ML VIAL IV SCH ×3 (04:10→20:45)
[2017-09-22] MEDS: PIPERACILLIN/TAZOBACTAM 3,375 MG in SODIUM CHLORIDE 0.9% 100 ML IV SCH ×3 (04:13→20:45)
[2017-09-22 06:13] LABS: Basophils # 0.1 10*3/uL (0.0-0.2); Basophils % 0.4 % (0.0-0.8); Eosinophils # 0.2 10*3/uL (0.0-0.87); Eosinophils % 1.8 % (0.00-10.9); Hemoglobin 12.9 GM/DL (14.0-18.0); Immature Granulocytes % 0.9 %; Immature Granulocytes Absolute 0.11 #; Lymphocytes # 0.9 10*3/uL (1.4-4.0); Lymphocytes % 7.7 % (21.2-54.2); Mean Corpuscular HGB Conc 33.1 GM/DL (32-36); Mean Corpuscular Hemoglobin 30 PG (27-34); Mean Corpuscular Volume 90.5 FL (87-102); Mean Platelet Volume 11.1 FL (9.6-12.0); Monocytes # 0.8 10*3/uL (0.11-0.8); Monocytes % 6.7 % (1.7-12.7); Neutrophils # 9.6 10*3/uL (1.4-7.4); Neutrophils % 82.5 % (38.7-73.9); Platelet Count 210 T/CUMM (130-400); Red Blood Count 4.31 MC/CUMM (3.8-5.5); Red Cell Distribution Width 13.6 % (9.3-17.3); White Blood Count 11.6 T/CUMM (4-12)
[2017-09-22 06:38] LABS: Calcium 9.1 MG/DL (8.5-10.1); Osmolality,Calculated 279.4 MOS/KG (273-304); Potassium 3.2 MMOL/L (3.5-5.1)
[2017-09-22] MEDS ORDERED: POTASSIUM CHLORIDE 20 MEQ TABLET PO ONE (11:50)
[2017-09-22] MEDS: OXYBUTYNIN XL 10 MG TABLET PO SCH (14:20)
[2017-09-22] MEDS ORDERED: NITROGLYCERIN SL 0.4 MG TABLET SL PRN (14:30)
[2017-09-22] MEDS: GABAPENTIN 100 MG CAPSULE PO SCH ×2 (15:59→20:44)
[2017-09-22] MEDS ORDERED: DOXAZOSIN 4 MG TABLET PO SCH (19:00)
[2017-09-22] MEDS: POTASSIUM CHLORIDE 20 MEQ TABLET PO SCH (20:44)
[2017-09-22] MEDS: FERROUS GLUCONATE 240 MG TABLET PO SCH (20:44)
[2017-09-22] MEDS: TIMOLOL 0.5% OPH SOLN 5 ML BOTTLE BOTH EYES SCH (20:45)
[2017-09-22] MEDS ORDERED: PRAVASTATIN 40 MG TABLET PO SCH (21:00)
[2017-09-23] MEDS: PIPERACILLIN/TAZOBACTAM 3,375 MG in SODIUM CHLORIDE 0.9% 100 ML IV SCH ×2 (04:12→12:41)
[2017-09-23 05:59] LABS: Basophils # 0.1 10*3/uL (0.0-0.2); Basophils % 0.5 % (0.0-0.8); Eosinophils # 0.2 10*3/uL (0.0-0.87); Eosinophils % 1.6 % (0.00-10.9); Hematocrit 37.9 VOL% (42.0-52.0); Hemoglobin 12.5 GM/DL (14.0-18.0); Immature Granulocytes Absolute 0.11 #; Lymphocytes # 1.4 10*3/uL (1.4-4.0); Lymphocytes % 12.9 % (21.2-54.2); Mean Corpuscular Hemoglobin 30 PG (27-34); Mean Corpuscular Volume 90.2 FL (87-102); Mean Platelet Volume 10.9 FL (9.6-12.0); Monocytes # 1.3 10*3/uL (0.11-0.8); Monocytes % 11.8 % (1.7-12.7); Neutrophils # 7.9 10*3/uL (1.4-7.4); Neutrophils % 72.2 % (38.7-73.9); Platelet Count 238 T/CUMM (130-400); Red Cell Distribution Width 13.8 % (9.3-17.3)
[2017-09-23 06:29] LABS: Albumin 2.7 G/DL (3.4-5.0); Bilirubin,Total 1.3 MG/DL (0.2-1.0); Calcium 8.6 MG/DL (8.5-10.1); Magnesium 2.3 MG/DL (1.8-2.4); Potassium 3.4 MMOL/L (3.5-5.1); Total Protein 5.9 G/DL (6.4-8.3)
[2017-09-23] MEDS ORDERED: CHOLECALCIFEROL 400 UNIT TABLET PO SCH (09:00)
[2017-09-23] MEDS ORDERED: ALLOPURINOL 300 MG TABLET PO SCH (09:00)
[2017-09-23] MEDS ORDERED: ASPIRIN EC 81 MG TABLET PO SCH (09:00)
[2017-09-23] MEDS ORDERED: FINASTERIDE 5 MG TABLET PO SCH (09:00)
[2017-09-23] MEDS ORDERED: LEVOTHYROXINE 75 MCG TABLET PO SCH (09:00)
[2017-09-23] MEDS ORDERED: PANTOPRAZOLE 40 MG TABLET PO SCH (09:00)
[2017-09-23] MEDS: POTASSIUM CHLORIDE 20 MEQ TABLET PO SCH (10:07)
[2017-09-23] MEDS: OXYBUTYNIN XL 10 MG TABLET PO SCH (10:07)
[2017-09-23] MEDS: FUROSEMIDE 40 MG/4 ML VIAL IV SCH (10:07)
[2017-09-23] MEDS: GABAPENTIN 100 MG CAPSULE PO SCH ×2 (10:07→16:35)
[2017-09-23] MEDS: FERROUS GLUCONATE 240 MG TABLET PO SCH (10:07)
[2017-09-23] MEDS: TIMOLOL 0.5% OPH SOLN 5 ML BOTTLE BOTH EYES SCH (10:08)
[2017-09-23 12:00] VITALS: BP 152/69
[2017-09-23] MEDS ORDERED: hydrALAZINE 25 MG TABLET PO SCH (21:00)
[2017-09-24] MEDS ORDERED: FUROSEMIDE 40 MG TABLET PO SCH (09:00)
== END 2017-09-23 17:10 | disposition home or self-care (01) | DRG 726 ==
LOC: N.ED 18:04 → N.EDINP 09-22 00:14 → SUATTDRO 09-22 00:14 → N.5E 09-22 01:36
PROVIDERS: ADMIT Pediatrics; ATTEND Hospitalist

== ENCOUNTER 2018-05-31 20:28 | Inpatient (IN) ==
[2018-05-31] MEDS ORDERED: MORPHINE 4 MG/1 ML VIAL IV STA (22:28)
[2018-05-31] MEDS ORDERED: ONDANSETRON 4 MG/2 ML VIAL IV STA (22:28)
[2018-05-31] MEDS ORDERED: SODIUM CHLORIDE 0.9% 1,000 ML IV STA (22:28)
[2018-05-31 22:56] LABS: Basophils % 0.2 % (0.0-0.8); Eosinophils % 0.1 % (0.00-10.9); Hematocrit 45.4 VOL% (42.0-52.0); Hemoglobin 14.6 GM/DL (14.0-18.0); Immature Granulocytes % 0.5 %; Immature Granulocytes Absolute 0.09 #; Lymphocytes # 0.6 10*3/uL (1.4-4.0); Lymphocytes % 3.5 % (21.2-54.2); Mean Corpuscular HGB Conc 32.2 GM/DL (32-36); Mean Corpuscular Hemoglobin 30 PG (27-34); Mean Corpuscular Volume 92.1 FL (87-102); Monocytes % 5.4 % (1.7-12.7); Neutrophils # 15.9 10*3/uL (1.4-7.4); Neutrophils % 90.3 % (38.7-73.9); Platelet Count 159 T/CUMM (130-400); Red Blood Count 4.93 MC/CUMM (3.8-5.5); Red Cell Distribution Width 14.2 % (9.3-17.3); White Blood Count 17.7 T/CUMM (4-12)
[2018-05-31 23:19] LABS: Alanine Aminotransferase 26 U/L (16-61); Albumin 3.8 G/DL (3.4-5.0); Alkaline Phosphatase 61 U/L (45-117); Aspartate Amino Transferase 16 U/L (0-37); Blood Urea Nitrogen 18 MG/DL (7-18); Calcium 9.4 MG/DL (8.5-10.1); Glucose 143 MG/DL (74-106); Osmolality,Calculated 282.4 MOS/KG (273-304); Potassium 3.3 MMOL/L (3.5-5.1); Sodium 140 MMOL/L (136-145); Total Protein 7.2 G/DL (6.4-8.3)
[2018-06-01 00:32] LABS: Apearance,Urine Slightly Hazy (Clear); Bacteria,Urine Occasional /HPF (Few); Bilirubin,Urine Negative (Negative); Blood, Urine Negative (Negative); Glucose,Urine (UA) Negative (Negative); Ketones,Urine 5 mg/dL (Negative); Mucus,Urine Occasional /LPF (Occasional); Nitrite,Urine Positive (Negative); Protein,Urine Negative; RBC,Urine 5 /HPF (0-4); Squamous Epithelial Cell,Urine Occasional /HPF (0-10); Urine Color Yellow (Yellow); Urine Specific Gravity 1.027 (1.001-1.035); Urine Urobilinogen < 2.0 EU/DL (0.2-1.0); WBC,Urine 66 /HPF (0-6)
[2018-06-01] MEDS ORDERED: metroNIDAZOLE 500 MG TABLET PO STA (02:19)
[2018-06-01] MEDS ORDERED: cefTRIAXone 250 MG VIAL IV STA (02:19)
[2018-06-01 02:20] LABS: Band Neutrophils 1 % (0-10); Lymphocytes 4 % (20-55); Platelet Estimate Adequate; Segmented Neutrophils 91 % (50-85); Total Cells Counted 100
[2018-06-01] MEDS ORDERED: SODIUM CHLORIDE 0.9% 1,000 ML IV STA (02:23)
[2018-06-01] MEDS ORDERED: traZODone 50 MG TABLET PO PRN (03:24)
[2018-06-01] MEDS ORDERED: ONDANSETRON 4 MG/2 ML VIAL IV PRN (03:24)
[2018-06-01] MEDS ORDERED: LACTULOSE 20 GM/30 ML UDCUP PO PRN (03:24)
[2018-06-01] MEDS ORDERED: ACETAMINOPHEN 325 MG TABLET PO PRN (03:24)
[2018-06-01] MEDS ORDERED: MORPHINE 4 MG/1 ML VIAL IV PRN (03:24)
[2018-06-01] MEDS ORDERED: diphenhydrAMINE CAP 25 MG CAPSULE PO PRN (03:24)
[2018-06-01] MEDS ORDERED: cefTRIAXone 1,000 MG VIAL ONE (03:27)
[2018-06-01] MEDS ORDERED: SODIUM CHLORIDE 0.9% 100 ML IV ONE (03:27)
[2018-06-01] MEDS: SODIUM CHLORIDE 0.9% 1,000 ML IV SCH ×2 (05:23→15:04)
[2018-06-01] MEDS ORDERED: SODIUM CHLORIDE 0.9% 1,000 ML IV ONE (05:53)
[2018-06-01] MEDS: LEVOTHYROXINE 75 MCG TABLET PO SCH (07:17)
[2018-06-01] MEDS ORDERED: ASPIRIN EC 81 MG TABLET PO SCH (09:00)
[2018-06-01] MEDS ORDERED: metroNIDAZOLE 500 MG TABLET PO SCH (09:00)
[2018-06-01] MEDS: PANTOPRAZOLE 40 MG TABLET PO SCH (09:14)
[2018-06-01] MEDS: GABAPENTIN 100 MG CAPSULE PO SCH ×3 (09:14→20:36)
[2018-06-01] MEDS: metroNIDAZOLE INJ 500 MG in PREMIX 1 EACH IV SCH ×3 (09:15→20:37)
[2018-06-01] MEDS: POTASSIUM CHLORIDE 20 MEQ TABLET PO SCH ×3 (09:15→20:35)
[2018-06-01] MEDS: AZITHROMYCIN INJ 500 MG in SODIUM CHLORIDE 0.9% 250 ML IV SCH (11:13)
[2018-06-01] MEDS: TIMOLOL 0.5% OPH SOLN 5 ML BOTTLE BOTH EYES SCH (20:37)
[2018-06-01] MEDS ORDERED: DOXAZOSIN 4 MG TABLET PO SCH (21:00)
[2018-06-01] MEDS ORDERED: FINASTERIDE 5 MG TABLET PO SCH (21:00)
[2018-06-02] MEDS: SODIUM CHLORIDE 0.9% 1,000 ML IV SCH ×2 (01:43→11:18)
[2018-06-02] MEDS: metroNIDAZOLE INJ 500 MG in PREMIX 1 EACH IV SCH ×3 (03:08→18:32)
[2018-06-02 03:11] LABS: Basophils % 0.2 % (0.0-0.8); Eosinophils # 0.1 10*3/uL (0.0-0.87); Eosinophils % 1.3 % (0.00-10.9); Hemoglobin 11.8 GM/DL (14.0-18.0); Immature Granulocytes % 0.6 %; Immature Granulocytes Absolute 0.05 #; Lymphocytes # 1.2 10*3/uL (1.4-4.0); Lymphocytes % 13.7 % (21.2-54.2); Mean Corpuscular HGB Conc 32.8 GM/DL (32-36); Mean Corpuscular Hemoglobin 30 PG (27-34); Mean Corpuscular Volume 92.3 FL (87-102); Mean Platelet Volume 12.1 FL (9.6-12.0); Monocytes # 0.8 10*3/uL (0.11-0.8); Monocytes % 9.3 % (1.7-12.7); Neutrophils # 6.8 10*3/uL (1.4-7.4); Neutrophils % 74.9 % (38.7-73.9); Platelet Count 138 T/CUMM (130-400); Red Cell Distribution Width 14.6 % (9.3-17.3); White Blood Count 9.1 T/CUMM (4-12)
[2018-06-02 03:30] LABS: Bilirubin,Total 1.3 MG/DL (0.2-1.0); Calcium 8.4 MG/DL (8.5-10.1); Osmolality,Calculated 288.6 MOS/KG (273-304); Potassium 3.6 MMOL/L (3.5-5.1); Total Protein 5.5 G/DL (6.4-8.3)
[2018-06-02] MEDS ORDERED: cefTRIAXone 1,000 MG in SYRINGE 1 EACH IV SCH (03:30)
[2018-06-02] MEDS: LEVOTHYROXINE 75 MCG TABLET PO SCH (05:55)
[2018-06-02] MEDS: TIMOLOL 0.5% OPH SOLN 5 ML BOTTLE BOTH EYES SCH (09:15)
[2018-06-02] MEDS: GABAPENTIN 100 MG CAPSULE PO SCH ×2 (09:16→18:33)
[2018-06-02] MEDS: POTASSIUM CHLORIDE 20 MEQ TABLET PO SCH ×2 (09:16→18:32)
[2018-06-02] MEDS: PANTOPRAZOLE 40 MG TABLET PO SCH (09:16)
[2018-06-02] MEDS ORDERED: SODIUM CHLORIDE 0.9% IV ONE (10:00)
[2018-06-02] MEDS ORDERED: POTASSIUM PHOSPHATE IV ONE (10:00)
[2018-06-02] MEDS: AZITHROMYCIN INJ 500 MG in SODIUM CHLORIDE 0.9% 250 ML IV SCH (10:55)
[2018-06-02] MEDS ORDERED: ALLOPURINOL 300 MG TABLET PO SCH (11:30)
[2018-06-02] MEDS ORDERED: hydrALAZINE 25 MG TABLET PO SCH (11:30)
[2018-06-02] MEDS ORDERED: CHOLECALCIFEROL 400 UNIT TABLET PO SCH (11:30)
[2018-06-02 14:54] VITALS: BP 174/76
[2018-06-02] MEDS ORDERED: FERROUS GLUCONATE 240 MG TABLET PO SCH (21:00)
== END 2018-06-02 15:30 | disposition home or self-care (01) | DRG 394 ==
LOC: N.ED 20:28 → SUATTDRO 06-01 03:24 → N.EDINP 06-01 03:24 → N.2E 06-01 04:27
PROVIDERS: ADMIT Internal Medicine Geriatric Medicine; ATTEND Internal Medicine